=== PATIENT | male | born 1995 | race African-American/Black ===

== ENCOUNTER 2020-12-26 20:07 | Emergency (ER) | payer OTHER ==
[~2020-12-26] VITALS: Ht 170.2 cm; Wt 63.5 kg
[2020-12-26 20:58] VITALS: BP 141/84
[2020-12-26] MEDS ORDERED: AMOXICILLIN500 M1 PO (21:35)
== END 2020-12-26 21:40 | disposition home or self-care (01) ==
LOC: ER 20:07
DX: J02.9 Acute pharyngitis, unspecified (principal); J45.909 Unspecified asthma, uncomplicated